=== PATIENT | female | born 1985 | race Hispanic/Latino ===

== ENCOUNTER 2017-08-04 22:05 | Emergency (ER) | payer SELFPAY ==
[2017-08-04 23:15] LABS: #Eosinphils 0.2 thou/uL (0.0-0.7); #Lymphocytes 3.1 thou/uL (1.20-3.40); #Monocytes 0.5 thou/uL (0.11-0.59); #Neutrophils 5.7 thou/uL (1.40-6.50); %Basophils 0.4 % (0.0-1.0); %Eosinophils 1.6 % (0.0-10.0); %Lymphocytes 32.6 % (21.0-51.0); %Monocytes 5.1 % (0.0-10.0); %Neutrophils 60.3 % (42.0-75.0); Hemoglobin 12.8 g/dL (12.0-16.0); Mean Corpuscular HGB CONC 35.7 g/dL (32.0-36.0); Mean Corpuscular Hemoglobin 32.7 pg (27.0-31.0); Mean Corpuscular Volume 91.6 fL (78.0-98.0); Mean Platelet Volume 7.5 fL (7.4-10.4); Platelet Count 217 thou/uL (130-400); RBC Distribution Width 11.5 % (11.5-14.5); Red Blood Cell (RBC) Count 3.91 mill/uL (4.20-5.40); White Blood Cell (WBC) Count 9.5 thou/uL (4.8-10.8)
[2017-08-04 23:16] LABS: ALT (SGPT) 12 U/L (8-55); AST (SGOT) 11 U/L (5-34); Albumin 3.8 g/dL (3.5-5.0); Alkaline Phosphatase 63 U/L (40-150); Anion Gap 13 mmol/L (10-20); BUN (Urea Nitrogen) 7 mg/dL (7.0-18.7); Bilirubin, Total 0.2 mg/dL (0.2-1.2); Calc. Creatinine Clearance 0 mL/min (70-130); Calcium 9.5 mg/dL (7.8-10.44); Carbon Dioxide 22 mmol/L (22-29); Chloride 105 mmol/L (98-107); Estimated GFR-MDRD Greater than 90; Globulin 3.5 g/dL (2.4-3.5); Glucose 99 mg/dL (70-105); Potassium 3.5 mmol/L (3.5-5.1); Protein, Total 7.3 g/dL (6.0-8.3); Sodium 136 mmol/L (136-145)
--- NOTE | 2017-08-04 23:33 | ULT ---
ULTRASOUND PELVIS DOPPLER DUPLEX: DATE: 08/04/17 TIME: 10:55 p.m. HISTORY: 32-year-old female in early second trimester of presents with vaginal bleeding and pelvic p ain. Dr. Navarrete reported the findings suspicious for subchorionic hemorrhage to Dr. Espinal of the Emergency Department at the time of this dictation. TECHNIQUE: Transabdominal transducer used to evaluate intrapelvic contents with mason scale, color flow, and spec tral analysis. FINDINGS: There is an early second trimester fetus in cephalic lie. It is difficult to be certain of the position of the placenta because this is early in the second tri mester. There is a 3.3 x 0.9 cm anechoic fluid collection at the lateral aspect of the uterus or placenta. Th ere is also another approximately 2.5 x 1.5 cm anechoic fluid collection located inferiorly/distally in the uterus. There is a small to moderate amount of fluid within the vaginal canal, probably repres enting hemorrhage. The cervix is closed, and is approximately 3.5 to 4 cm in length. heart rate: 158 bpm. It is too early to evaluate anatomy in detail. BIOMETRY: BPD: 2.2 cm 13w,5d HC: 8.4 cm 13w,5d AC: 7.2 cm 13w,5d FL: 1.1 cm 13w,2d AUA: 13w,3d EDC: 02/06/18 LMP: 05/03/17 Gestational age by LMP: 13w,2d IMPRESSION: 1. Live early second trimester intrauterine gestation estimated to be 13 weeks, 3 days gestation al age. 2. Evidence for subchorionic hemorrhage, (considered small, less than 20% size of the gestationa l sac). POS: [facility]
[2017-08-04 23:37] LABS: Bilirubin Moderate (Negative); Blood, Urine Large (Negative); Clarity TURBID (Clear); Glucose, Urine (Dipstick) 100 mg/dL (Negative); Leukocyte Moderate (Negative); Nitrite Positive (Negative); Protein, Urine (Dipstick) > or equal to 300 mg/dL (Neg-Trace); pH, Urine 6.5 (5.0-9.0)
[2017-08-04 23:39] LABS: Bacteria/HPF 2+ HPF (None Seen); RBC/HPF GREATER THAN 50-TNTC HPF (0-3)
[2017-08-04 23:45] LABS: Hyaline Casts/LPF 0-3 HYALINE CAST LPF (0-3 Hyaline); Other Casts/LPF None Seen LPF (0-3 Hyaline); Pathc Cast-AUWi Flag 292.39 (0-2.49)
--- NOTE | 2017-08-05 08:45 | CON ---
DATE OF CONSULTATION: 08/04/2017 CONSULTING PHYSICIAN: Dr. Espinal CHIEF COMPLAINT: Vaginal bleeding. HISTORY OF PRESENT ILLNESS: The patient is a 32-year-old G5, P3 female with a confirmed intrauterine at 13 weeks who presented to the emergency room today with complaints of vaginal bleeding. She reports that the bleeding began this evening a couple hours prior to presentation just spontaneously after she was getting up from dinner. The patient reports suprapubic pain initially on presentation; however, at the time of my evaluation, the patient denied any pain still being present. The patient has a history of a previous miscarriage first trimester with her first . The patient denies any fall or trauma. She denies any fever, headache, chest pain, shortness of breath , nausea, vomiting, diarrhea, constipation. She denies any new rashes, hip problems, knee problems, muscle weakness. The patient reports at the time of my evaluation her bleeding had slowed down significantly and had just urinated without any blood coming out. PAST MEDICAL HISTORY: Negative. PAST SURGICAL HISTORY: Negative. SOCIAL HISTORY: Denies drug, alcohol or tobacco use. ALLERGIES: No known drug allergies. MEDICATIONS: vitamins. PHYSICAL EXAMINATION: VITAL SIGNS: Blood pressure 101/64, pulse of 91, respiratory rate of 21, O2 sats 98% on room air. GENERAL: She appeared to be in no acute distress. She is alert and oriented, cooperative and pleasant to interact with. HEENT: Head is normocephalic, atraumatic. LUNGS: Clear to auscultation bilaterally. HEART: Regular rate and rhythm. ABDOMEN: Soft and nontender. EXTREMITIES: Nontender, nonedematous. CERVICAL EXAM: Per reporting ER physician on the speculum exam, patient had about 20 mL of blood and a visibly closed cervix. Ultrasound was performed demonstrating an intrauterine with heart tones of 158 and a small subchorionic hemorrhage reported about 20% the size of the gestational sac. ASSESSMENT AND PLAN: The patient is a 32-year-old G5, P3 female with an intrauterine at 13 weeks with a threatened AB and subchorionic hematoma. THe bleeding is not associated with any significant pain at this time and seems to be spontaneously abating. The patient has been given miscarriage precautions. She was given the option to remain in the hospital overnight to see if this progresses for maternal comfort or to be discharged home with expectant management and instructions to return should she experience heavy bleeding or pain. PT has chosen discharge home. The patient was also counseled if she were to miscarry at home that delivery of the fetus without placenta is not uncommon and it would be important to identify a placenta was passed as well as this could cause serious bleeding and other complications. The patient was given instructions should this occur to come to the emergency room for evaluation. The patient does have plans to establish care with an OB next week , which she has been encouraged to keep. GIDEON
== END 2017-08-05 01:21 | disposition home or self-care (01) ==
LOC: ERS 22:05
DX: O20.0 Threatened abortion (principal); O23.41 Unspecified infection of urinary tract in pregnancy, first trimester
CPT/HCPCS: 51701; 76856; 80053; 81003; 81015; 84702; 85025; 86900; 86901

== ENCOUNTER 2018-02-03 15:07 | Inpatient (IN) | payer MEDICAID, OTHER, SELFPAY ==
[2018-02-03 15:35] VITALS: BMI 30.2
[2018-02-03 16:04] LABS: Amnisure Test RUPTURE DETECTED (No Rupture)
[2018-02-03 16:05] LABS: Amnisure Internal Control QC ACCEPTABLE (ACCEPTABLE)
[2018-02-03] MEDS ORDERED: Ibuprofen 800 MG TAB PO PRN (16:46)
[2018-02-03] MEDS ORDERED: Ondansetron PF 4 MG/2 ML Vial IVP PRN ×2 (16:46→20:57)
[2018-02-03] MEDS ORDERED: Butorphanol Tartrate 1 MG/ML VIAL SLOW IVP PRN (16:46)
[2018-02-03] MEDS ORDERED: Lidocaine 1% (PF) 30 ML VIAL SC PRN (16:46)
[2018-02-03] MEDS ORDERED: Methylergonovine 0.2 MG/ML VIAL IM PRN (16:46)
[2018-02-03] MEDS ORDERED: HYDROcodone/Acetaminophen 5/325 mg Tablet PO PRN (16:46)
[2018-02-03] MEDS ORDERED: Carboprost 250 MCG/ML AMP IM PRN (16:46)
[2018-02-03] MEDS ORDERED: Misoprostol 200 MCG TAB PR PRN (16:46)
[2018-02-03] MEDS ORDERED: Diphenoxylate HCl/Atropine Tablet PO PRN (16:46)
[2018-02-03] MEDS ORDERED: Penicillin G Potassium 5 MILL.UNITS VIAL ONE (16:59)
[2018-02-03] MEDS ORDERED: NS w/ Oxytocin 10 units 500 ML IV SCH ×2 (17:00)
[2018-02-03] MEDS: Lactated Ringer's 1,000 ML IV SCH ×2 (17:00→20:40)
[2018-02-03] MEDS ORDERED: Penicillin G Potassium 5 MILL.UNITS in Sodium Chloride 0.9% 100 ML IVPB SCH (17:00)
[2018-02-03 17:20] LABS: Hemoglobin 12.6 g/dL (12.0-16.0); Mean Corpuscular HGB CONC 34.5 g/dL (32.0-36.0); Mean Corpuscular Hemoglobin 30.2 pg (27.0-31.0); Mean Corpuscular Volume 87.5 fL (78.0-98.0); Mean Platelet Volume 9.5 fL (7.4-10.4); Platelet Count 198 thou/uL (130-400); Red Blood Cell (RBC) Count 4.16 mill/uL (4.20-5.40); White Blood Cell (WBC) Count 9.3 thou/uL (4.8-10.8)
[2018-02-03 17:59] LABS: HBSAg Index 0.28 S/CO (0-0.99); Hep B Surf Ag Non-Reactive S/CO (NonReactive); Syphilis Antibody Nonreactive (Nonreactive); Syphilis Antibody Index 0.07 S/CO (<1.00 Non-Reactive)
[2018-02-03] MEDS ORDERED: Fentanyl 4 mcg/Bup 0.1% Cadd 100 ML ONE ×2 (19:12→19:13)
[2018-02-03] MEDS ORDERED: Lidocaine 2% MPF 10 ML AMP (For Epidural Use) ONE (20:00)
[2018-02-03] MEDS ORDERED: Bupivacaine HCl 0.25%/Epi 0.0005/PF 10 ML VIAL FS ONE (20:00)
[2018-02-03] MEDS ORDERED: Lidocaine 1.5%/Epinephrine 1:200,000 5 ML AMPUL IJ ONE (20:14)
[2018-02-03] MEDS ORDERED: Acetaminophen 325 MG TAB PO PRN (20:57)
[2018-02-03] MEDS ORDERED: Lactated Ringer's 500 ML IV PRN (20:57)
[2018-02-03] MEDS ORDERED: ePHEDrine/0.9% NaCl/PF SYRINGE 50 mg/10 ml SLOW IVP PRN (20:57)
[2018-02-03] MEDS ORDERED: Promethazine HCl 25 MG/ML VIAL IM PRN (20:57)
[2018-02-03] MEDS ORDERED: Eucerin (Mineral Oil/Petrolatum,White) 30 gm Jar TOP PRN (20:57)
[2018-02-03] MEDS ORDERED: Naloxone HCl 0.4 mg/ml Vial IVP PRN ×2 (20:57)
[2018-02-03] MEDS ORDERED: diphenhydrAMINE 50 MG/ML VIAL IVP PRN (20:57)
[2018-02-03] MEDS ORDERED: Fentanyl 4 mcg/Bupivacaine 0.1% Cassette 100 ML EPIDURAL SCH (21:00)
[2018-02-03] MEDS ORDERED: Communication Order-Pharmacy FS SCH (21:00)
[2018-02-03] MEDS: Penicillin G 2.5 MILL.units 2.5 MILL.UNITS in Premix Bag 1 BAG IVPB SCH (21:01)
[2018-02-03] MEDS: NS / Oxytocin 40 units/1000ml 1,000 ML IV PRN (22:09)
[2018-02-04] MEDS: NS / Oxytocin 40 units/1000ml 1,000 ML IV PRN (00:20)
[2018-02-04] MEDS ORDERED: Bisacodyl 10 MG SUPP PR PRN (01:34)
[2018-02-04] MEDS ORDERED: diphenhydrAMINE 25 MG CAP PO PRN (01:34)
[2018-02-04] MEDS ORDERED: Ondansetron PF 4 MG/2 ML Vial IVP PRN (01:34)
[2018-02-04] MEDS ORDERED: HYDROcodone/Acetaminophen 5/325 mg Tablet PO PRN (01:34)
[2018-02-04] MEDS ORDERED: NS / Oxytocin 40 units/1000ml 1,000 ML IV SCH (01:34)
[2018-02-04] MEDS ORDERED: Milk Of Magnesia 30 ML UDCUP PO PRN (01:34)
[2018-02-04] MEDS: Penicillin G 2.5 MILL.units 2.5 MILL.UNITS in Premix Bag 1 BAG IVPB SCH (04:53)
[2018-02-04 05:44] LABS: Hemoglobin 10.7 g/dL (12.0-16.0); Mean Corpuscular HGB CONC 33.9 g/dL (32.0-36.0); Mean Corpuscular Hemoglobin 29.6 pg (27.0-31.0); Mean Corpuscular Volume 87.3 fL (78.0-98.0); Mean Platelet Volume 9.4 fL (7.4-10.4); Platelet Count 169 thou/uL (130-400); RBC Distribution Width 13.9 % (11.5-14.5); Red Blood Cell (RBC) Count 3.62 mill/uL (4.20-5.40); White Blood Cell (WBC) Count 11.5 thou/uL (4.8-10.8)
[2018-02-04] MEDS: Ibuprofen 800 MG TAB PO SCH ×3 (06:24→21:42)
[2018-02-04] MEDS: HYDROcodone/Acetaminophen 5/325 mg Tablet PO PRN ×2 (07:57→22:22)
[2018-02-04] MEDS: Docusate Calcium (SURFAK) 240 MG CAP PO SCH ×2 (07:59→21:42)
[2018-02-04] MEDS: Ferrous Sulfate 325 MG TAB PO SCH ×2 (08:00→17:08)
[2018-02-05] MEDS: HYDROcodone/Acetaminophen 5/325 mg Tablet PO PRN (04:54)
[2018-02-05] MEDS: Ibuprofen 800 MG TAB PO SCH ×2 (06:10→13:48)
[2018-02-05] MEDS: Ferrous Sulfate 325 MG TAB PO SCH (09:44)
[2018-02-05] MEDS: Docusate Calcium (SURFAK) 240 MG CAP PO SCH (09:53)
[2018-02-05 10:44] VITALS: BP 108/69; TEMP 98.5
== END 2018-02-05 14:40 | disposition home or self-care (01) | DRG 807 ==
LOC: L&D/OP 15:07 → L&D 16:57 → 3SE 02-04 01:26
PROVIDERS: ADMIT Family Medicine; ATTEND Family Medicine
PROC: 10E0XZZ Delivery of Products of Conception, External Approach (ICD-10-PCS; principal; 2018-02-03)
DX: O48.0 Post-term pregnancy (principal); Z37.0 Single live birth; O76 Abnormality in fetal heart rate and rhythm complicating labor and delivery; O99.824 Streptococcus B carrier state complicating childbirth; O69.81X0 Labor and delivery complicated by cord around neck, without compression, not applicable or unspecified; Z3A.40 40 weeks gestation of pregnancy
CPT/HCPCS: 36415; 51702; 84112; 85027; 86780; 86850; 86900; 86901; 87340; 99285; J2001; J2540; J3490